=== PATIENT | female | born 1960 | race Caucasian/White ===

== ENCOUNTER 2023-01-08 09:20 | Emergency (ER) | payer BC ==
[~2023-01-08] VITALS: Ht 160 cm; Wt 118.0 kg
[2023-01-08 09:52] LABS: BASOPHILS # (AUTO) 0.1 X10'3 (0-0.2); BASOPHILS % (AUTO) 1.5 % (0-1); EOSINOPHILS # (AUTO) 0.3 X10'3 (0-0.9); HEMATOCRIT 42.2 % (35.0-45.0); HEMOGLOBIN 14.4 g/dl (12.0-16.0); LYMPHOCYTES # (AUTO) 2.5 X10'3 (1.1-4.8); LYMPHOCYTES % (AUTO) 26.4 % (21-51); MEAN CORPUSCULAR HEMOGLOBIN 30.8 PG (27.0-31.0); MEAN CORPUSCULAR HGB CONC 34.2 g/dL (33.0-36.5); MEAN CORPUSCULAR VOLUME 90.1 FL (78-98); MEAN PLATELET VOLUME 7.6 FL (7.4-10.4); MONOCYTES # (AUTO) 0.7 X10'3 (0-0.9); MONOCYTES % (AUTO) 7.1 % (2-12); NEUTROPHILS # (AUTO) 5.8 X10'3 (1.8-7.7); PLATELET COUNT 334 X10'3 (140-440); RED BLOOD COUNT 4.68 X10'6 (4.20-5.60); RED CELL DISTRIBUTION WIDTH 14.1 % (11.5-14.5); WHITE BLOOD COUNT 9.4 X10'3 (4.5-11.0)
[2023-01-08 10:07] LABS: ALANINE AMINOTRANSFERASE 50 U/L (12-78); ALBUMIN 3.9 G/DL (3.4-5.0); ALKALINE PHOSPHATASE 105 IU/L (46-116); ANION GAP 9 (8-16); ASPARTATE AMINO TRANSFERASE 23 U/L (10-37); BILIRUBIN,TOTAL 0.5 MG/DL (0.1-1.0); BLOOD UREA NITROGEN 22 MG/DL (7-18); BUN/CREATININE RATIO 27.8 (10.0-20.0); CALCIUM 9.1 MG/DL (8.5-10.1); CHLORIDE 101 MMOL/L (99-107); CREATININE 0.79 MG/DL (0.40-0.90); GLUCOSE 139 MG/DL (70-104); SODIUM 136 MMOL/L (135-145); TOTAL CARBON DIOXIDE 25.6 MMOL/L (24-32); TOTAL PROTEIN 7.7 G/DL (6.4-8.2); eGFR 74 ML/MIN
[2023-01-08 11:49] VITALS: BP 132/86
== END 2023-01-08 11:56 | disposition home or self-care (01) ==
LOC: ER 09:20
DX: R07.89 Other chest pain (principal); R05.9 Cough, unspecified; R06.00 Dyspnea, unspecified; R42 Dizziness and giddiness; I10 Essential (primary) hypertension; E11.9 Type 2 diabetes mellitus without complications; Z79.899 Other long term (current) drug therapy
CPT/HCPCS: 36415; 71045; 80053; 83880; 84484; 85025; 93005; 99285

== ENCOUNTER 2023-01-19 17:33 | Emergency (ER) | payer BC ==
[~2023-01-19] VITALS: Ht 160 cm; Wt 118.2 kg
[2023-01-19 18:00] LABS: BASOPHILS % (AUTO) 0.6 % (0-1); EOSINOPHILS # (AUTO) 0.5 X10'3 (0-0.9); EOSINOPHILS % (AUTO) 5.7 % (0-6); HEMATOCRIT 39.6 % (35.0-45.0); HEMOGLOBIN 13.4 g/dl (12.0-16.0); LYMPHOCYTES # (AUTO) 2.2 X10'3 (1.1-4.8); LYMPHOCYTES % (AUTO) 25.2 % (21-51); MEAN CORPUSCULAR HEMOGLOBIN 30.5 PG (27.0-31.0); MEAN CORPUSCULAR HGB CONC 33.7 g/dL (33.0-36.5); MEAN CORPUSCULAR VOLUME 90.5 FL (78-98); MEAN PLATELET VOLUME 8.1 FL (7.4-10.4); MONOCYTES # (AUTO) 0.8 X10'3 (0-0.9); MONOCYTES % (AUTO) 9.6 % (2-12); NEUTROPHILS # (AUTO) 5.2 X10'3 (1.8-7.7); NEUTROPHILS % (AUTO) 58.9 % (42-75); PLATELET COUNT 311 X10'3 (140-440); RED BLOOD COUNT 4.38 X10'6 (4.20-5.60); RED CELL DISTRIBUTION WIDTH 14.2 % (11.5-14.5); WHITE BLOOD COUNT 8.7 X10'3 (4.5-11.0)
[2023-01-19 18:11] LABS: ALANINE AMINOTRANSFERASE 27 U/L (12-78); ALBUMIN 3.7 G/DL (3.4-5.0); ALBUMIN/GLOBULIN RATIO 1.1 (1.1-1.5); ALKALINE PHOSPHATASE 94 IU/L (46-116); ANION GAP 9 (8-16); ASPARTATE AMINO TRANSFERASE 15 U/L (10-37); BILIRUBIN,TOTAL 0.3 MG/DL (0.1-1.0); BLOOD UREA NITROGEN 22 MG/DL (7-18); BUN/CREATININE RATIO 28.6 (10.0-20.0); CALCIUM 9.4 MG/DL (8.5-10.1); CHLORIDE 104 MMOL/L (99-107); CREATININE 0.77 MG/DL (0.40-0.90); GLUCOSE 119 MG/DL (70-104); POTASSIUM 3.9 MMOL/L (3.5-5.1); SODIUM 139 MMOL/L (135-145); TOTAL CARBON DIOXIDE 26.3 MMOL/L (24-32); TOTAL PROTEIN 7.1 G/DL (6.4-8.2); eGFR 76 ML/MIN
[2023-01-19 18:19] LABS: MAGNESIUM 2.1 MG/DL (1.5-2.4)
[2023-01-20] MEDS ORDERED: aspirin 81mg tab.chew PO ONE (02:20)
[2023-01-20 02:31] VITALS: BP 134/82
== END 2023-01-20 02:29 | disposition home or self-care (01) ==
LOC: ER 17:34
DX: R07.9 Chest pain, unspecified (principal); I11.9 Hypertensive heart disease without heart failure; E11.9 Type 2 diabetes mellitus without complications; Z88.1 Allergy status to other antibiotic agents
CPT/HCPCS: 36415; 71045; 80053; 83735; 83880; 84484; 85025; 93005; 99285

== ENCOUNTER → 2025-05-24 | Emergency (ER) | payer BC, MEDICARE ==
[~2025-05-24] VITALS: Ht 160 cm; Wt 115.9 kg
[~2025-05-24] MED LIST: ASPI81TA52 PO; ATOR-2 PO; CALC-627 PO; CHOL50004 PO; ISOS30TA84 PO; LIDO-52 TOP; LISI40TA20 PO; LORA10CA PO; NITR0.4T48 PO; OMEP40CA21 PO; PARO30TA4 PO; PARO40TA4 PO; PROP40TA72 PO
[2025-05-24 09:31] VITALS: TEMP 97.8
--- NOTE | 2025-05-24 09:46 | Physician Documentation ---
History of Present Illness ~ Chief Complaint: Mechanical Fall Stated Complaint: FALL NO THINNERS Time Seen by MD: 09:45 HPI This is a 64-year-old female who presents with low back pain and right knee pain following a ground level trip and fall, patient reports unknown if she struck her head though reports no pain to head, patient reports no loss of consciousness or blood thinners. Occurred: just prior to arrival Medication Reconciliation Allergies: Coded Allergies: cephalexin (Verified Allergy, Unknown, 05/24/25) codeine (Verified Allergy, Unknown, 05/24/25) Uncoded Allergies: OPIATES (Allergy, Unknown, breathing difficulties, 01/08/23) Scheduled Aspirin (Aspirin EC), 1 TAB PO DAILY, (Reported) Atorvastatin Calcium (Atorvastatin Calcium), 1 TAB PO DAILY, (Reported) Calcium/Magnesium (Calcium Magnesium Tablet), 1 TAB PO Q8H, (Reported) Cholecalciferol (Vitamin D3) (Vitamin D3), 1 CAP PO DAILY, (Reported) Isosorbide Mononitrate (Isosorbide Mononitrate Er), 0.5 TAB PO DAILY, (Reported) Lidocaine (Lidoderm), 1 PATCH TOP DAILY Lisinopril* (Lisinopril*), 1 TAB PO DAILY, (Reported) Loratadine (Claritin), 1 CAP PO DAILY, (Reported) Omeprazole (Prilosec), 1 CAP PO DAILY, (Reported) Paroxetine HCl (Paroxetine HCl), 1 TAB PO DAILY, (Reported) Paroxetine Hcl (PAXIL tablet), 1 TAB PO DAILY, (Reported) Propranolol Hcl* (Inderal*), 1 TAB PO DAILY, (Reported) Scheduled PRN Nitroglycerin (Nitroglycerin), 0.4 MG PO PRN PRN for chest pain, (Reported) Past Medical History Past Medical History: Coronary Artery Disease, Hypertension, Diabetes Past Surgical History: noncontributory Alcohol Use: None Review of Systems ROS As stated above in the HPI, otherwise all systems are reviewed and negative. Physical Exam Vital Signs: RN Vital Signs have been reviewed: Yes, Temperature: 97.8, Source: Oral, Heart Rate: 73, Respiratory Rate: 16, BP: 166/81, Pulse Oximetry: 96, Weight: 115.910 Oxygen Flow Rate: 0 Physical Exam VITALS: Reviewed and as above. GENERAL: Alert, nontoxic appearing, no apparent distress. HEENT: RESPIRATORY: No increased work of breathing, no respiratory distress, speaking in full clear sentences CHEST: CV: BACK: GI: MUSCULOSKELETAL: SKIN: NEURO: PSYCH: General Appearance: alert, WD/WN, no apparent distress Head: no evidence of injury Face: normal Eye Lid: normal inspection Pupils/EOM/Fundus: PERRLA Ears: normal inspection Nose: normal inspection Neck: non-tender Respiratory: lungs clear Chest: normal inspection Cardiovascular: normal peripheral pulses Gastrointestinal: normal palpation Back + TTP to mid to lower back (midline and paraspinal). Skin: warm/dry Neurologic: oriented x4 Motor / Sensory: no motor deficit Cerebellar function exam: normal Thoughts/Hallucinations: normal thought pattern Best Eye Response: (4) open spontaneously Best Verbal Response: (5) oriented Best Motor Response: (6) obeys commands Progress Results/Orders Results/Orders Orders - MOIZ CHEEK MD Ct Lumbar Spine (05/24/25 10:20) Ct Thoracic Spine (05/24/25 10:20) Ct Head (05/24/25 10:21) Lidocaine 5% Patch (Lidoderm 5% Patch) (05/24/25 11:55) Completed Orders - MOIZ CHEEK MD Ct Lumbar Spine (05/24/25 10:20) Ct Thoracic Spine (05/24/25 10:20) Ct Head (05/24/25 10:21) Ketorolac Trometh 30mg/Ml Vial (Toradol (05/24/25 11:30) Lidocaine 5% Patch (Lidoderm 5% Patch) (05/25/25 08:00) Medications Received in ER Medications (Trade) Dose Ordered Sig/Sofia Route PRN Reason Start Time Stop Time Status Last Admin Dose Admin (Toradol inj. 30mg/ml) 15 mg ONCE ONCE IM 05/24/25 11:30 05/24/25 11:35 DC 05/24/25 12:01 15 MG (Lidoderm 5% Patch) 1 patch DAILY TP 05/24/25 11:55 05/24/25 12:00 1 PATCH Vital Signs 05/24/25 05/24/25 05/24/25 05/24/25 09:31 11:16 12:01 12:06 Temp 97.8 Pulse 73 59 Resp 16 16 16 16 B/P (MAP) 166/81 167/70 (102) Pulse Ox 96 93 O2 Flow Rate 0 0 Medical Decision Making Findings MSE performed in triage and patient returned to ED lobby by nursing staff to await available ED room. Imaging ordered. Differential Dx:Considerations: Include: Closed head injury, Fracture(s), Spine injury, Vascular injury, Hematoma(s), Laceration(s) Additional Comment Ms. Zepeda is a 64 y/o female who presents with c/o back and right knee pain s/p a GLF. While here in the ED, she remained hemodynamically normal with ABC's intact and in NAD. She is afebrile and nontoxic. Neuro exam nonfocal. She states that she is uncertain if she hit her head and cannot confirm if there was LoC so decision made to obtain neuroimaging. CT Brain without an acute bleed, space occupying lesion, or large territorial infarct. C-spine cleared per NEXUS. Plain films of the right knee shows chronic changes but on my read, I do not appreciate acute osseous abnormalities. L-spine, as interpreted by me, shows chronic changes but is without an acute fracture. She is in considerable pain in her back and this is limiting her mobility. Decision made to obtain additional imaging to further evaluate. CT of T/L spine shows chronic changes but is without acute pathology. She was treated symptomatically here in the ED with improvement in her symptoms. She ambulated here as well without acute gait abnormalities. She is safe for d/c home with continued symptomatic therapy. She received IM Ketorolac and a Lidoderm patch. Will be discharged home with the same. Given follow-up and return instructions. She voiced understanding and agreement with d/c instructions. Departure Disposition: HOME / SELF CARE / HOMELESS Impression: Primary Impression: Fall Additional Impressions: Back pain Knee pain Condition: Improved Referrals: NO PRIMARY CARE PROVIDER (PCP) Prescriptions Lidocaine (Lidoderm) 5 % Adh..patch 1 PATCH TOP DAILY for 30 Days, #30 PATCH 0 Refills may wear up to 12 hours Prov: MOIZ CHEEK MD 05/24/25 Education Educated: Patient Educated regarding: diagnosis Signature Scribe Signature: N/A Attestation: N/A MICHELLE HERNANDEZ [facility] May 24, 2025 09:46 MOIZ CHEEK MD May 24, 2025 10:26
--- NOTE | 2025-05-24 10:41 | RADIOLOGY REPORT ---
Indication: Fall Technique: DI KNEE, COMP 4 VW MINKNEE CMPT Comparison: None FINDINGS/IMPRESSION: No radiographic evidence for acute fracture or dislocation. Severe degenerate changes of the right knee. [id number] in the lateral compartment. 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 Moderate suprapatellar effusion.
--- NOTE | 2025-05-24 10:42 | RADIOLOGY REPORT ---
Indication: Fall Technique: [facility] Comparison: None FINDINGS/IMPRESSION: Limited characterization due to habitus. Within limitations, lumbar heights appear to be maintained. There is 4 mm anterolisthesis of L4 upon L5. Moderate to severe multilevel disc space narrowing with endplate sclerosis. Moderate lumbar facet hypertrophic changes. Moderate bilateral sacroiliac degenerative joint disease. Cholecystectomy. CT/ MRI lumbar spine can be obtained to further characterize given the limitations of this examination.
--- NOTE | 2025-05-24 10:57 | RADIOLOGY REPORT ---
CLINICAL HISTORY: Fall TECHNIQUE: Helical scanning was performed of the head from the skull base to the vertex. Multiplanar reconstructions were performed. This exam was performed according to our departmental dose optimization program. Up-to-date CT equipment and radiation dose reduction techniques are utilized as appropriate. CTDI 54 DLP 912 COMPARISON: None FINDINGS: There is no evidence for acute intracranial hemorrhage, acute ischemic changes, mass, mass effect, or extra-axial fluid collection. There is no hydrocephalus or midline shift. There is no effacement of the cerebral sulci and basal subarachnoid cisterns. The chen-white matter differentiation is well maintained. The imaged paranasal sinuses are clear. IMPRESSION: NO ACUTE INTRACRANIAL ABNORMALITY SEEN.
--- NOTE | 2025-05-24 11:21 | RADIOLOGY REPORT ---
CT CT LUMBAR SPINE, CT CT THORACIC SPINE Indication: Mid to low back pain s/p fall EXAM DATE: 05/24/2025 10:32 AM COMPARISON: None TECHNIQUE: CT of the thoracic, lumbar without intravenous contrast. RADIATION DOSE: CTDIvol: 35 mGy, DLP: 1031 mGy*cm FINDINGS: Thoracic vertebral body heights are maintained. Moderate multilevel disc space narrowing with endplate sclerosis, anterior osteophytosis. Moderate facet hypertrophic changes. S shaped curvature of the thoracic spine. The lumbar vertebral body heights are maintained. Moderate multilevel disc space narrowing. There is 7 mm anterolisthesis of L4 upon L5. Moderate to advanced lumbar facet hypertrophic changes. Moderate bilateral sacroiliac degenerative joint disease. Cholecystectomy clips. Atherosclerotic disease. Coronary artery calcification disease. IMPRESSION: Moderate thoracic and lumbar degenerative disc disease. Atherosclerotic / coronary artery calcification disease. S shaped curvature thoracic spine
[2025-05-24] MEDS: ketorolac trometh 30MG/ML vial 30 MG/ML VIAL IM ONE (12:01)
[2025-05-24 12:06] VITALS: BP 167/70; PULSE 59; RESP 16; O2SAT 93
== END | disposition home or self-care (01) ==
LOC: ER 09:29
DX: M54.50 Low back pain, unspecified (principal); M25.561 Pain in right knee; R51.9 Headache, unspecified; E11.9 Type 2 diabetes mellitus without complications; I10 Essential (primary) hypertension; I25.10 Atherosclerotic heart disease of native coronary artery without angina pectoris; Z88.1 Allergy status to other antibiotic agents; Z88.5 Allergy status to narcotic agent; Z88.8 Allergy status to other drugs, medicaments and biological substances; Z79.82 Long term (current) use of aspirin; W19.XXXA Unspecified fall, initial encounter; Y93.89 Activity, other specified; Y92.89 Other specified places as the place of occurrence of the external cause; Y99.8 Other external cause status
CPT/HCPCS: 70450; 72100; 72128; 72131; 73564; 96372; 99285; J1885